=== PATIENT | female | born 1970 | race African-American/Black ===

== ENCOUNTER 2019-02-22 18:52 | Emergency (ER) | payer BC, OTHER, SELFPAY ==
[~2019-02-22] VITALS: Ht 154.9 cm; Wt 78.0 kg
[~2019-02-22 18:52] MED LIST: ASPI325T70 PO; ASPI325T8 PO; AZIT250T6 PO; ENOX40DI SQ; FERR-36 PO; FURO20TA3 PO; GUAI118L20 PO; HYDR-3164 PO; METO25TA4 PO; MULT-245 PO; PRED20TA PO; WARF3TAB54 PO
--- NOTE | 2019-02-22 19:30 | PHYS DOC ---
Past Medical History Past Medical History: DVT Additional Past Medical Histor: "BLOOD CLOT" (FIONA NARANJO) Past Surgical History: Hysterectomy Additional Past Surgical Histo: OPEN HEART SURGERY: 2014 (FIONA NARANJO) Alcohol Use: Occasionally Drug Use: None (FIONA NARANJO) Adult General Chief Complaint Chief Complaint: DENTAL PROBLEM HPI HPI Patient is a 48 year old F who presents with R lower dental pain with inflammation of the gumline. She states she was working today and the pain started and worsened throughout the day. She noticed swelling of the R lower jaw when she got off work. The pain radiates up to her R ear. (FIONA NARANJO) Review of Systems Review of Systems Constitutional: Denies fever or chills [] HENT: Denies nasal congestion or sore throat. Reports dental pain Respiratory: Denies cough or shortness of breath [] Cardiovascular: Denies chest pain GI: Denies abdominal pain, nausea, vomiting, bloody stools or diarrhea [] : Denies dysuria or hematuria [] Musculoskeletal: Denies back pain or joint pain [] Integument: Denies rash or skin lesions [] Neurologic: Denies headache, focal weakness or sensory changes [] All other systems were reviewed and found to be within normal limits, except as documented in this note. (FIONA NARANJO) Current Medications Current Medications Current Medications Medications (Trade) Dose Ordered Sig/Darek Start Time Stop Time Status Last Admin Dose Admin Acetaminophen/ Hydrocodone Bitart (Lortab 10/325) 1 tab 1X ONCE 02/22/19 19:45 02/22/19 19:46 DC 02/22/19 19:49 1 TAB Amoxicillin (Amoxil) 1,000 mg 1X ONCE 02/22/19 19:45 02/22/19 19:46 DC 02/22/19 19:49 1,000 MG (LINDSEY SOLIS MD) Allergies Allergies Allergies Coded Allergies Type Severity Reaction Last Updated Verified No Known Medication Allergies Allergy Unknown 02/22/19 Yes codeine Adverse Reaction Intermediate Nausea 08/14/14 Yes (LINDSEY SOLIS MD) Physical Exam Physical Exam Constitutional: Well developed, well nourished, no acute distress, non-toxic appearance. [] HENT: Normocephalic, atraumatic, bilateral external ears normal, oropharynx moist, no oral exudates, nose normal. R lower tooth fractured and gumline indurated and tender. No pointing lesion present. Neck: Normal range of motion, no tenderness, supple, no stridor. [] Cardiovascular:Heart rate regular rhythm, no murmur [] Lungs & Thorax: Bilateral breath sounds clear to auscultation [] Abdomen: Bowel sounds normal, soft, no tenderness, no masses, no pulsatile masses. [] Skin: Warm, dry, no erythema, no rash. Swelling of R jaw line. Back: No tenderness, no CVA tenderness. [] Extremities: No tenderness, no cyanosis, no clubbing, ROM intact, no edema. [] Neurologic: Alert and oriented X 3, normal motor function, normal sensory function, no focal deficits noted. [] Psychologic: Affect normal, judgement normal, mood normal. [] (FIONA NARANJO) Current Patient Data Vital Signs Vital Signs Date Time Temp Pulse Resp B/P (MAP) Pulse Ox O2 Delivery O2 Flow Rate FiO2 02/22/19 19:39 97.9 86 18 160/96 (117) 97 Room Air 97.9 (LINDSEY SOLIS MD) EKG EKG [] (FIONA NARANJO) Radiology/Procedures Radiology/Procedures [] (FIONA NARANJO) Course & Med Decision Making Course & Med Decision Making Pertinent Labs and Imaging studies reviewed. (See chart for details) Pt treated with pain medicine and antibiotics here in ER and Rx written for h ome. Encouraged mouth wash or salt water gargles and close f/u with dentist. (FIONA NARANJO) Course & Med Decision Making Staff Physician Addendum: I was working in the ER during the course of this patient's visit. I was available for consultation as needed, but I was not directly involved in the care of this patient. (LINDSEY SOLIS MD) Dragon Disclaimer Dragon Disclaimer This electronic medical record was generated, in whole or in part, using a voice recognition dictation system. (FIONA NARANJO) Departure Departure Impression: Primary Impression: Dental abscess Disposition: 01 HOME, SELF-CARE Condition: STABLE Referrals: TRINH AVENDAÑO MD (PCP) Patient Instructions: Dental Abscess Additional Instructions: Rinse with salt water gargles after eating and brush frequently. You will need close follow up with a dentist. Scripts Ibuprofen (IBUPROFEN) 800 Mg Tablet 800 MG PO PRN Q8HRS PRN for INFLAMMATION, #15 TAB Prov: FIONA NARANJO 02/22/19 Hydrocodone/Apap 5-325 (NORCO 5-325 TABLET) 1 Each Tablet 1-2 TAB PO Q4-6HRS PRN for PAIN, #15 TAB Prov: FIONA NARANJO 02/22/19 Amoxicillin (AMOXICILLIN) 500 Mg Tablet 2 TAB PO BID, #40 TAB Prov: FIONA NARANJO 02/22/19 FIONA NARANJO February 22, 2019 19:30 LINDSEY SOLIS MD March 03, 2019 21:16
[2019-02-22 19:39] VITALS: BP 160/96
[2019-02-22] MEDS ORDERED: HYDROcodone/APAP 10/325 1 TAB TABLET PO ONE (19:45)
[2019-02-22] MEDS ORDERED: AMOXICILLIN 250 MG CAPSULE. PO ONE (19:45)
[2019-02-22] MEDS ORDERED: AMOX500T PO (20:03)
[2019-02-22] MEDS ORDERED: HYDR-3164 PO (20:03)
[2019-02-22] MEDS ORDERED: IBUP-1060 PO (20:03)
== END 2019-02-22 20:16 | disposition home or self-care (01) ==
LOC: ER 18:52
DX: K04.7 Periapical abscess without sinus (principal); Z88.5 Allergy status to narcotic agent
CPT/HCPCS: 99283

== ENCOUNTER 2019-07-30 09:49 | Emergency (ER) | payer BC ==
[~2019-07-30] VITALS: Ht 154.9 cm; Wt 78.0 kg
[~2019-07-30 09:49] MED LIST changes: +AMOX500T PO; +IBUP-1060 PO
[2019-07-30 09:55] VITALS: BP 154/87
[2019-07-30] MEDS ORDERED: DIPHTH,PERTUSS(ACELL),TET TOX 0.5 ML DISP.SYRIN. VAX IM ONE (10:15)
[2019-07-30] MEDS ORDERED: LIDOCAINE 1% Multi-Dose 20 ML VIAL. INJ ONE (10:15)
[2019-07-30] MEDS ORDERED: CEPH-264 PO (10:57)
[2019-07-30] MEDS ORDERED: TRAM-48 PO (10:57)
--- NOTE | 2019-07-30 10:58 | PHYS DOC ---
Past Medical History Past Medical History: DVT, Hypertension Additional Past Medical Histor: "BLOOD CLOTS in my heart" Past Surgical History: Coronary Bypass Surgery, Hysterectomy Additional Past Surgical Histo: OPEN HEART SURGERY: 2014 Alcohol Use: Rarely Drug Use: None Adult General Chief Complaint Chief Complaint: FINGER INJURY [facility] HPI Patient is a 48 year old right-handed female who presents with complaining of pain of the right middle finger. Patient states she accidentally cut lateral side of nailbed of right middle finger about 4 days ago and since then has had pain and edema and tenderness of keep of her finger. Patient denies fever and chills, nausea and vomiting, history of MRSA. Patient is not up-to-date with tetanus immunization. Review of Systems Review of Systems Constitutional: Denies fever or chills [] Eyes: Denies change in visual acuity, redness, or eye pain [] HENT: Denies nasal congestion or sore throat [] Respiratory: Denies cough or shortness of breath [] Cardiovascular: No additional information not addressed in HPI [] GI: Denies abdominal pain, nausea, vomiting, bloody stools or diarrhea [] : Denies dysuria or hematuria [] Musculoskeletal: Denies back pain or joint pain [] Integument: Denies rash, reports skin lesions [] Neurologic: Denies headache, focal weakness or sensory changes [] Endocrine: Denies polyuria or polydipsia [] All other systems were reviewed and found to be within normal limits, except as documented in this note. Current Medications Current Medications Current Medications Medications (Trade) Dose Ordered Sig/Darek Start Time Stop Time Status Last Admin Dose Admin Diphtheria/ Tetanus/Acell Pertussis (Boostrix) 0.5 ml ONCE ONCE 07/30/19 10:15 07/30/19 10:16 DC 07/30/19 10:30 0.5 ML Lidocaine HCl (Lidocaine 1% 20ml Vial) 20 ml 1X ONCE 07/30/19 10:15 07/30/19 10:16 DC 07/30/19 10:28 20 ML Allergies Allergies Allergies Coded Allergies Type Severity Reaction Last Updated Verified No Known Medication Allergies Allergy Unknown 02/22/19 Yes codeine Adverse Reaction Intermediate Nausea 08/14/14 Yes Physical Exam Physical Exam Constitutional: Well developed, well nourished, mild distress, non-toxic appearance. [] HENT: Normocephalic, atraumatic. Eyes: PERRLA, EOMI, conjunctiva normal, no discharge. [] Neck: Normal range of motion, no tenderness, supple, no stridor. [] Cardiovascular:Heart rate regular rhythm, no murmur [] Lungs & Thorax: Bilateral breath sounds clear to auscultation [] Extremities: Right the finger with edema and erythema and fluctuation of tip of finger without neurovascular deficit Neurologic: Alert and oriented X 3, no focal deficits noted. [] Psychologic: Affect normal, judgement normal, mood normal. [] Current Patient Data Vital Signs Vital Signs Date Time Temp Pulse Resp B/P (MAP) Pulse Ox O2 Delivery O2 Flow Rate FiO2 07/30/19 09:55 98.3 76 16 154/87 (109) 96 Room Air 98.3 EKG EKG [] Radiology/Procedures Radiology/Procedures [] Course & Med Decision Making Course & Med Decision Making Evaluation of patient in ER showed 48-year-old right-handed female patient with abscess of right middle finger that was drained in ER and dressing applied. Dragon Disclaimer Dragon Disclaimer This electronic medical record was generated, in whole or in part, using a voice recognition dictation system. Departure Departure Impression: Primary Impression: Paronychia Disposition: 01 HOME, SELF-CARE (at 1055) Condition: IMPROVED Referrals: TRINH AVENDAÑO MD (PCP) Patient Instructions: Paronychia Additional Instructions: Keep wound clean and dry Follow-up with your primary care physician in 3-5 days Return to ER if not getting better Scripts Tramadol Hcl (ULTRAM) 50 Mg Tablet 50 MG PO Q6HRS PRN for PAIN, #14 TAB 0 Refills Prov: RORO MENDOSA MD 07/30/19 Cephalexin (KEFLEX) 500 Mg Capsule 2 CAP PO Q12HR, #28 CAP Prov: RORO MENDOSA MD 07/30/19 Incision and Drainage Indication: abscess of right middle finger tip Procedure: The patient was positioned appropriately. Right middle finger digital block and Local anesthesia was given with 1% lidocaine without epinephrine. An incision was then made over the apex of the lesion and small amount of pus material was expressed. The drainage cavity was irrigated and dressing was applied. Tetanus immunization was updated in ER. The patient tolerated the procedure well. Complications: none. RORO MENDOSA MD Jul 30, 2019 10:58
== END 2019-07-30 11:08 | disposition home or self-care (01) ==
LOC: ER 09:49
DX: L03.011 Cellulitis of right finger (principal); I10 Essential (primary) hypertension; Z86.718 Personal history of other venous thrombosis and embolism; Z90.710 Acquired absence of both cervix and uterus; Z95.1 Presence of aortocoronary bypass graft; Z88.5 Allergy status to narcotic agent
CPT/HCPCS: 10060; 90471; 90715; 99284

== ENCOUNTER 2020-06-10 07:08 | Emergency (ER) | payer BC ==
[~2020-06-10] VITALS: Ht 154.9 cm; Wt 88.6 kg
[~2020-06-10 07:08] MED LIST changes: +CEPH-264 PO; +TRAM-48 PO
[2020-06-10 07:20] VITALS: BP 162/75
[2020-06-10] MEDS ORDERED: IBUPROFEN 200 MG TABLET. PO ONE (07:30)
--- NOTE | 2020-06-10 07:32 | PHYS DOC ---
Past Medical History Past Medical History: DVT, Hypertension Additional Past Medical Histor: "BLOOD CLOTS in my heart" Past Surgical History: Coronary Bypass Surgery, Hysterectomy Additional Past Surgical Histo: OPEN HEART SURGERY: 2014 Smoking Status: Never Smoker Alcohol Use: Rarely Drug Use: None General Adult EDM: Chief Complaint: FOOT INJURY PAIN HPI: HPI: Patient is a 49-year-old female who states she was wearing slides yesterday at a convenient store when she stumbled tripped and kicked something jamming her left great toe. She states the toe is become more painful overnight and she is noted quite a bit of swelling to the area. She states it hurts when she tries to walk or move her toe. She denies any other injuries at this time. [] Review of Systems: Review of Systems: Constitutional: Denies fever or chills. [] Eyes: Denies change in visual acuity. [] HENT: Denies nasal congestion or sore throat. [] Respiratory: Denies cough or shortness of breath. [] Cardiovascular: Denies chest pain or edema. [] GI: Denies abdominal pain, nausea, vomiting, bloody stools or diarrhea. [] : Denies dysuria. [] Musculoskeletal: Per HPI [] Integument: Denies rash. [] Neurologic: Denies headache, focal weakness or sensory changes. [] Endocrine: Denies polyuria or polydipsia. [] Lymphatic: Denies swollen glands. [] Psychiatric: Denies depression or anxiety. [] Heart Score: Risk Factors: Risk Factors: DM, Current or recent (<one month) smoker, HTN, HLP, family history of CAD, obesity. Risk Scores: Score 0 - 3: 2.5% MACE over next 6 weeks - Discharge Home Score 4 - 6: 20.3% MACE over next 6 weeks - Admit for Clinical Observation Score 7 - 10: 72.7% MACE over next 6 weeks - Early Invasive Strategies Current Medications: Current Medications Medications (Trade) Dose Ordered Sig/Darek Start Time Stop Time Status Last Admin Dose Admin Ibuprofen (Motrin) 600 mg 1X ONCE 06/10/20 07:30 06/10/20 07:31 Allergies: Allergies: Allergies Coded Allergies Type Severity Reaction Last Updated Verified No Known Medication Allergies Allergy Unknown 02/22/19 Yes codeine Adverse Reaction Intermediate Nausea 08/14/14 Yes Physical Exam: PE: Constitutional: Well developed, well nourished, no acute distress, non-toxic appearance. [] HENT: Normocephalic, atraumatic, bilateral external ears normal, oropharynx moist, no oral exudates, nose normal. [] Eyes: PERRLA, EOMI, conjunctiva normal, no discharge. [] Neck: Normal range of motion, no tenderness, supple, no stridor. [] Cardiovascular:Heart rate regular rhythm, no murmur [] Lungs & Thorax: Bilateral breath sounds clear to auscultation [] Abdomen: Bowel sounds normal, soft, no tenderness, no masses, no pulsatile masses. [] Skin: Warm, dry, no erythema, no rash. [] Back: No tenderness, no CVA tenderness. [] Extremities: Left great toe tender to palp moderately swollen no obvious ecchymosis no significant deformity] Neurologic: Alert and oriented X 3, normal motor function, normal sensory function, no focal deficits noted. [] Psychologic: Affect normal, judgement normal, mood normal. [] EKG: EKG: [] Radiology/Procedures: Radiology/Procedures: Left great toe x-ray: Negative exam as interpreted by me [] Course & Med Decision Making: Course & Med Decision Making Pertinent Labs and Imaging studies reviewed. (See chart for details) [] Dragon Disclaimer: Dragon Disclaimer: This electronic medical record was generated, in whole or in part, using a voice recognition dictation system. Departure Departure Impression: Primary Impression: Foot sprain Qualified Codes: S93.602A - Unspecified sprain of left foot, initial encounter Disposition: 01 HOME, SELF-CARE Condition: STABLE Referrals: TRINH AVENDAÑO MD (PCP) Patient Instructions: Finger Sprain-SportsMed, Foot Contusion Additional Instructions: Return to the emergency department with any new or concerning symptoms Scripts Naproxen (NAPROXEN) 500 Mg Tablet 1 TAB PO BID PRN for PAIN, #30 TAB 1 Refill Prov: EITAN PERSAUD DO 06/10/20 Justicifation of Admission Dx: Justifications for Admission: Justification of Admission Dx: No EITAN PERSAUD DO Jun 10, 2020 07:32
[2020-06-10] MEDS ORDERED: NAPR-514 PO (07:57)
--- NOTE | 2020-06-10 08:04 | RAD ---
Left great toe 3 views HISTORY: Left foot, pain great toe 3 views were taken of the left great toe. There is soft tissue swelling. There is no fracture or bony destructive process. IMPRESSION: 1. No fracture or bony destructive process noted. Electronically signed by: Onesimo James MD (06/10/2020 8:01 AM) [id number]
== END 2020-06-10 08:07 | disposition home or self-care (01) ==
LOC: ER 07:08
DX: S93.602A Unspecified sprain of left foot, initial encounter (principal); I10 Essential (primary) hypertension; Z86.718 Personal history of other venous thrombosis and embolism; Z95.1 Presence of aortocoronary bypass graft; Z88.5 Allergy status to narcotic agent; W23.0XXA Caught, crushed, jammed, or pinched between moving objects, initial encounter; Y93.89 Activity, other specified; Y92.89 Other specified places as the place of occurrence of the external cause; Y99.8 Other external cause status
CPT/HCPCS: 73660; 99283; 99284